=== PATIENT | female | born 1965 | race Caucasian/White ===

== ENCOUNTER 2023-02-24 21:03 | Emergency (ER) | payer SELFPAY ==
[~2023-02-24 21:03] MED LIST: Iopamidol 370 76% 100 ML VIAL ONE
[2023-02-24 21:26] LABS: #Basophils 0.1 thou/uL (0.0-0.2); #Monocytes 0.2 thou/uL (0.11-0.59); #Neutrophils 9.1 thou/uL (1.40-6.50); %Basophils 0.9 % (0.0-1.0); %Eosinophils 0.2 % (0.0-10.0); %Monocytes 1.9 % (0.0-10.0); %Neutrophils 87.1 % (42.0-75.0); Hematocrit 48.6 % (36.0-47.0); Mean Corpuscular Hemoglobin 31.5 pg (27.0-31.0); Mean Corpuscular Volume 95.6 fl (78.0-98.0); Mean Platelet Volume 7.9 fL (7.4-10.4); Platelet Count 296 10x3/uL (130-400); RBC Distribution Width 13.2 % (11.5-14.5); Red Blood Cell (RBC) Count 5.08 mill/uL (4.20-5.40); White Blood Cell (WBC) Count 10.5 10x3/uL (4.8-10.8)
[2023-02-24] MEDS ORDERED: Ondansetron PF 4 MG/2 ML Vial ONE (21:42)
[2023-02-24] MEDS ORDERED: Dicyclomine 20 MG/2 ML VIAL ONE (21:42)
[2023-02-24] MEDS ORDERED: Sodium Chloride 0.9% 1,000 ML ONE (21:42)
[2023-02-24] MEDS ORDERED: Morphine 4 MG/ML VIAL ONE ×2 (21:42→22:57)
[2023-02-24 21:44] LABS: ALT (SGPT) 50 U/L (8-55); AST (SGOT) 14 U/L (5-34); Albumin 4.3 g/dL (3.5-5.0); Alkaline Phosphatase 122 U/L (40-110); Anion Gap 17 mmol/L (10-20); BUN (Urea Nitrogen) 12 mg/dL (9.8-20.1); Bilirubin, Total 0.2 mg/dL (0.2-1.2); Calc. Creatinine Clearance 0 mL/min (70-130); Calcium 9.6 mg/dL (7.8-10.44); Carbon Dioxide 19 mmol/L (22-29); Chloride 106 mmol/L (98-107); Estimated GFR 92; Globulin 3.7 g/dL (2.4-3.5); Glucose 132 mg/dL (70-105); Lipase 35 U/L (8-78); Potassium 4.3 mmol/L (3.5-5.1); Sodium 138 mmol/L (136-145)
[2023-02-24 22:39] LABS: Bilirubin Negative (Negative); Blood, Urine Small (Negative); Clarity Clear (Clear); Glucose, Urine (Dipstick) Negative (Negative); Ketone, Urine Negative (Negative); Leukocyte Negative (Negative); Nitrite Negative (Negative); Protein, Urine (Dipstick) Trace mg/dL (Neg-Trace); Specific Gravity, Urine 1.015 (1.005-1.030); Urobilinogen 0.2 mg/dL (Less than 2)
[2023-02-24 22:40] LABS: Bacteria/HPF None Seen HPF (None Seen); CAUTI Indications for Culture Pelvic or flank pain; RBC/HPF None Seen HPF (0-3); Urine Culture Reflex No No; WBC/HPF None Seen HPF (0-3)
[2023-02-24 22:41] LABS: Pregnancy Test - Urine (BHCG) Negative (Negative); Pregu Control Background? CLEAR/WHITE (CLR/WHITE); Pregu Control Bar Appear? YES (CONTROL BAR)
[2023-02-25] MEDS ORDERED: Morphine 4 MG/ML VIAL ONE (00:49)
[2023-02-25] MEDS ORDERED: Ondansetron PF 4 MG/2 ML Vial ONE ×2 (00:49→03:24)
[2023-02-25] MEDS ORDERED: Morphine 2 MG/ML VIAL ONE (03:24)
== END 2023-02-25 03:56 | disposition short-term general hospital (02) ==
LOC: NAV ERS 21:03
DX: K80.50 Calculus of bile duct without cholangitis or cholecystitis without obstruction (principal); M06.9 Rheumatoid arthritis, unspecified; F17.210 Nicotine dependence, cigarettes, uncomplicated; I25.10 Atherosclerotic heart disease of native coronary artery without angina pectoris; E11.9 Type 2 diabetes mellitus without complications
CPT/HCPCS: 74177; 80053; 81001; 81025; 83690; 85025; 96361; 96372; 96374; 96375; 96376; J2270; J2272; J2405; J7050; Q9967